=== PATIENT | female | born 1990 | race Hispanic/Latino ===

== ENCOUNTER 2021-08-31 23:48 | Emergency (ER) | payer OTHER ==
[~2021-08-31] VITALS: Ht 157.5 cm; Wt 98.4 kg
[~2021-08-31 23:48] MED LIST: AMLODIPINE BESYL5 MG PO; PRAVASTATIN SOD20 MG
== END 2021-09-01 01:00 | disposition home or self-care (01) ==
LOC: ER 09-01 00:39
DX: F41.9 Anxiety disorder, unspecified (principal); I10 Essential (primary) hypertension; E78.00 Pure hypercholesterolemia, unspecified
CPT/HCPCS: 81003; 81025; 99282